=== PATIENT | female | born 1985 | race Two or more races ===

== ENCOUNTER 2020-04-03 16:53 | Emergency (ER) | payer OTHER ==
[~2020-04-03] VITALS: Ht 147.3 cm; Wt 45.5 kg
[2020-04-03] MEDS ORDERED: IBUPROFEN 600 MG TABLET PO ONE (17:30)
[2020-04-03 19:50] VITALS: BP 112/75
== END 2020-04-03 19:50 ==
LOC: EMS 16:55
DX: S82.64XA Nondisplaced fracture of lateral malleolus of right fibula, initial encounter for closed fracture (principal); W19.XXXA Unspecified fall, initial encounter; Y93.89 Activity, other specified; Y92.89 Other specified places as the place of occurrence of the external cause; Y99.8 Other external cause status
CPT/HCPCS: 29515